=== PATIENT | female | born 1975 | race Caucasian/White ===

== ENCOUNTER 2018-12-24 03:29 | Emergency (ER) | payer OTHER ==
[~2018-12-24] VITALS: Ht 162.6 cm; Wt 68.0 kg
[2018-12-24] MEDS ORDERED: LAMICTAL100 MG PO (03:40)
[2018-12-24] MEDS ORDERED: PROZAC20 MG PO (03:41)
[2018-12-24 03:46] LABS: URINE BILIRUBIN 1+ (Negative); URINE BLOOD 3+ (Negative); URINE CLARITY CLEAR; URINE COLOR YELLOW; URINE GLUCOSE-RANDOM NEGATIVE (Negative); URINE KETONES TRACE (Negative); URINE LEUKOCYTES-REFLEX 2+ (Negative); URINE NITRITE-REFLEX NEGATIVE (Negative); URINE PROTEIN 1+ (Negative); URINE SPECIFIC GRAVITY 1.025 (1.005-1.030)
[2018-12-24 03:53] LABS: AMP/METHAMP Negative (Negative); BARBITURATES Negative (Negative); BENZODIAZEPINES Negative (Negative); COCAINE Negative (Negative); METHADONE Negative (Negative); OPIATES Negative (Negative); PCP Negative (Negative); THC Negative (Negative)
[2018-12-24 03:59] LABS: ICTOTEST (BILI CONFIRMATORY) Negative (Negative); SQUAMOUS 0-3 Few /LPF (0-3); WBC CLUMPS Few (None Seen)
[2018-12-24 04:00] LABS: CASTS None Seen /LPF (None Seen); CRYSTALS None Seen /LPF (None Seen); MUCUS 4-6 Moderate strn/LPF (None Seen)
[2018-12-24] MEDS ORDERED: NORCO 7.5-3251 EACH PO (04:15)
[2018-12-24] MEDS ORDERED: ZOFRAN ODT4 MG PO (04:15)
[2018-12-24] MEDS ORDERED: CIPROFLOXACIN500 M1 PO (04:15)
[2018-12-24 04:57] VITALS: BP 135/76
== END 2018-12-24 04:58 | disposition home or self-care (01) ==
LOC: M.ERS 03:29
PROVIDERS: Emergency Medicine
DX: N39.0 Urinary tract infection, site not specified (principal); F32.9 Major depressive disorder, single episode, unspecified; Z90.49 Acquired absence of other specified parts of digestive tract; Z88.0 Allergy status to penicillin; Z88.8 Allergy status to other drugs, medicaments and biological substances

== ENCOUNTER 2021-02-13 20:49 | Emergency (ER) | payer OTHER ==
[~2021-02-13] VITALS: Ht 162.6 cm; Wt 72.6 kg
[~2021-02-13 20:49] MED LIST: CIPROFLOXACIN500 M1 PO; LAMICTAL100 MG PO; NORCO 7.5-3251 EACH PO; PROZAC20 MG PO; ZOFRAN ODT4 MG PO
[2021-02-13] MEDS ORDERED: MELOXICAM15 MG PO (21:36)
[2021-02-13] MEDS ORDERED: PREDNISONE 20 M20 M1 PO (21:36)
[2021-02-13] MEDS ORDERED: ACETAMINOPHEN-1 EAC2 PO (21:36)
[2021-02-13 21:55] VITALS: BP 149/71
== END 2021-02-13 21:57 | disposition home or self-care (01) ==
LOC: M.ERS 20:49
DX: M17.11 Unilateral primary osteoarthritis, right knee (principal); F32.9 Major depressive disorder, single episode, unspecified; Z98.890 Other specified postprocedural states; Z98.51 Tubal ligation status; Z90.49 Acquired absence of other specified parts of digestive tract; Z88.0 Allergy status to penicillin; Z88.8 Allergy status to other drugs, medicaments and biological substances